=== PATIENT | female | born 1965 | race Caucasian/White ===

== ENCOUNTER 2019-05-20 13:05 | Emergency (ER) | payer SELFPAY ==
[~2019-05-20] VITALS: Ht 162.6 cm; Wt 63.6 kg
[2019-05-20 13:26] VITALS: BP 141/89; Ht 162.6 cm; Wt 63.6 kg
== END 2019-05-20 16:08 | disposition left against medical advice (07) ==
LOC: D.ER 13:05
DX: S39.92XA Unspecified injury of lower back, initial encounter (principal)